=== PATIENT | female | born 1960 | race Caucasian/White ===

== ENCOUNTER → 2021-12-03 10:05 | Outpatient (CLI) | payer MEDICARE, SELFPAY ==
--- NOTE | ~2021-12-03 | XR_ITS ---
EXAMINATION: XR hip LT min 3V w AP pelvis DATE: 12/03/2021 10:24 INDICATION: Left hip pain TECHNIQUE: AP view the pelvis and two views of left hip were obtained. COMPARISON: 07/09/2018 FINDINGS: Bone alignment is normal. There is no fracture. There is mild osteoarthritis of the hips. M ild osteitis pubis is also noted. There are phleboliths of the pelvis. There is at least moderate low er lumbar spondylosis. IMPRESSION: 1. Mild osteoarthritis. Reviewed, dictated and finalized at location A. IMPRESSION: 1. Mild osteoarthritis.
== END ==
PROVIDERS: PCP Family Medicine; Visit Provider Family Medicine
DX: M25.552 Pain in left hip (principal); M16.12 Unilateral primary osteoarthritis, left hip; M86.8X8 Other osteomyelitis, other site
CPT/HCPCS: 73502

== ENCOUNTER 2022-09-11 15:25 | Emergency (ER) | payer MEDICARE, SELFPAY ==
--- NOTE | ~2022-09-11 | XR_ITS ---
EXAMINATION: XR chest 2V DATE: 09/11/2022 15:53 INDICATION: Fever, cough, and shortness of breath. TECHNIQUE: Frontal and lateral views of the chest were obtained. COMPARISON: CT abdomen and pelvis 09/15/2013 FINDINGS: There are mild airspace opacities in the midlung zones bilaterally. No pleural effusion or pneumothorax. The heart size is normal. There is an electronic implant in left anterior chest wall. IMPRESSION: 1. Mild airspace opacities in the midlung zones bilaterally suspicious for pneumonia. Reviewed, dictated and finalized at location A. CAL CLAIMS EXAMINER IMPRESSION: 1. Mild airspace opacities in the midlung zones bilaterally suspicious for pneu monia.
--- NOTE | 2022-09-11 15:31 | ED.URI ---
HPI - URI/Sore Throat General Chief Complaint: Upper Respiratory Infection Stated Complaint: SOB,RT Chest Pain,Cough,Congestion Time Seen by Provider: 09/11/22 15:59 Source: patient and RN notes reviewed Mode of arrival: ambulatory Limitations: no limitations History of Present Illness HPI Narrative: 62-year-old female presents with concern for ongoing cough, fever after COVID diagnosis. She reports she was diagnosed with COVID 1 week ago, she continue have cough and fever, her primary care provider sent her an order in for a Z-Kumar yesterday. She started a Z-Kumar yesterday. She reports her pulse ox was reading 88 at home. She reports nausea without vomiting MD elicited complaint: fever and cough Related Data Home Medications Medication Instructions Recorded Confirmed apixaban 5 mg tablet (Eliquis) 5 mg PO BID 06/16/22 09/11/22 Allergies Allergy/AdvReac Type Severity Reaction Status Date / Time levofloxacin Allergy Unknown Unknown Verified 09/11/22 15:49 naproxen Allergy Unknown Unknown Verified 09/11/22 15:49 povidone-iodine AdvReac Severe HIVES/THROAT Verified 09/11/22 15:49 SWELLING Sulfa (Sulfonamide AdvReac Severe Anaphylaxis Verified 09/11/22 15:49 Antibiotics) chlorhexidine AdvReac Mild HIVES Verified 09/11/22 15:49 iodine AdvReac Mild Hives Verified 09/11/22 15:49 latex AdvReac Mild Hives Verified 09/11/22 15:49 soap AdvReac Mild Hives Verified 09/11/22 15:49 Review of Systems Review of Systems: CONSTITUTIONAL: Reports malaise, chills, fever. EYES: Denies visual changes, redness, or discharge. ENT: Reports rhinorrhea, congestion. Denies sinus pain, otalgia and sore throat. CARDIOVASCULAR: Denies chest pain, palpitations, or edema. RESPIRATORY: Reports cough, dyspnea. GASTROINTESTINAL: Denies abdominal pain, nausea, vomiting, diarrhea SKIN: Denies rash or itching. MUSCULOSKELETAL: Denies myalgia. NEUROLOGIC: Denies headache. All systems reviewed & are unremarkable except as noted in HPI and below PMFSH Past Medical History Medical History (Updated 09/11/22 @ 16:05 by Aicha Arroyo NP) Acute bronchitis Adult BMI 35.0-35.9 kg/sq m Arthritis At moderate risk for fall the patient fell down the stairs when she lost her balance April,. BMI 36.0-36.9,adult Breast cancer screening by mammogram mammogram normal On 08/20/2022. Cardiac arrhythmia Cervical spinal stenosis Chronic left hip pain X-ray 12/03/2021 with mild osteoarthritis both hips Chronic low back pain with bilateral sciatica Closed head injury Colon cancer screening patient is due for repeat screening on 11/16/[address] Marin. Family history of multiple colon polyps. 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 Paxlovid Degenerative lumbar disc Essential (primary) hypertension Headache Insomnia Intraductal papilloma (~1987) Lumbar radiculopathy Lupus (systemic lupus erythematosus) Mixed hyperlipidemia Overall profile is excellent. No treatment needed. Neuroma of foot (~2012) Obesity (BMI 30-39.9) Osteoarthritis of right thumb Perianal fistula Pharyngitis Plantar fibromatosis Poor short term memory Rosacea Screening cholesterol level Seasonal allergic rhinitis Urticaria UTI (urinary tract infection) Surgical History Surgical History (Updated 05/22/20 @ 14:06 by Eunice Rousseau MA) H/O inguinal hernia repair (~1986) H/O microdiscectomy (~2007) History of carpal tunnel release (~2015) History of hysterectomy (~2014) S/P trigger finger release (~2015) Family History Family History (Updated 05/22/20 @ 14:11 by Eunice Rousseau MA) Mother Family history of thyroid disease Father Hypertension, Onset Age: 75 Family history of coronary artery disease, Onset Age: 75 Grandparent Dementia Grandparent , suicide Depression Grandparent Heart disease Rheumatoi
[2022-09-11 15:36] VITALS: BP 138/110; PULSE 123; RESP 20; TEMP 38.8; O2SAT 94
== END 2022-09-11 16:16 | disposition home or self-care (01) ==
PROVIDERS: Emergency Provider Nurse Practitioner; PCP Family Medicine
DX: J18.9 Pneumonia, unspecified organism (principal); I10 Essential (primary) hypertension; E78.5 Hyperlipidemia, unspecified
CPT/HCPCS: 71046; 99213; G0463

== ENCOUNTER 2023-08-16 00:33 | Day surgery (SDC) | payer MEDICARE, SELFPAY ==
[2023-07-29 13:18] VITALS: BMI 33.7
--- NOTE | 2023-08-13 10:18 | SUR.PREOP ---
Patient called regarding upcoming procedure. Pt updated on arrival date and time. All questions answered
--- NOTE | 2023-08-14 15:27 | PM.HPGS ---
History of Present Illness History of Present Illness Consent: Risks, benefits, and alternatives have been discussed and questions answered. Patient agrees to proceed with procedure. Chief complaint: fam hx colon polyps Narrative: Rachell Palmer is a 63 year old female Referred for colon cancer screening. She has a family history of colon cancer. Review of Systems Review of Systems: All systems reviewed & are unremarkable except as noted in HPI and below PMFSH Past Medical History Medical History Abscess and cellulitis of gluteal region (12/29/22) left lower buttocks Acute bronchitis Acute non-recurrent maxillary sinusitis Adult BMI 35.0-35.9 kg/sq m Arthritis At moderate risk for fall the patient fell down the stairs when she lost her balance April,. BMI 36.0-36.9,adult Breast cancer screening by mammogram mammogram normal On 08/20/2022. Candidiasis of female genitalia Cardiac arrhythmia Cervical spinal stenosis Chronic left hip pain X-ray 12/03/2021 with mild osteoarthritis both hips Chronic low back pain with bilateral sciatica Closed head injury Colon cancer screening colonoscopy 11/25/[address] Marin normal with diverticulosis and hemorrhoids. Normal colonoscopy 04/18/2018 with recheck in 5 years With Family history of multiple colon polyps. 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 Paxlovid Degenerative lumbar disc Essential (primary) hypertension Headache Insomnia Intraductal papilloma (~1987) Lumbar radiculopathy Lupus (systemic lupus erythematosus) Mixed hyperlipidemia Overall profile is excellent. No treatment needed. Neuroma of foot (~2012) Obesity (BMI 30-39.9) On prednisone therapy Osteoarthritis of right thumb Perianal fistula Pharyngitis Plantar fibromatosis Pneumonia Poor short term memory Rosacea Screening cholesterol level Screening for osteoporosis (~02/23/17) normal DEXA scan with T-score 0.7 at the spine and 0.6 at combined hips. Seasonal allergic rhinitis Urticaria UTI (urinary tract infection) Surgical History Surgical History H/O inguinal hernia repair (~1986) H/O microdiscectomy (~2007) History of carpal tunnel release (~2015) History of hysterectomy (~2014) S/P trigger finger release (~2015) Family History Family History Mother Family history of thyroid disease Father Hypertension, Onset Age: 75 Family history of coronary artery disease, Onset Age: 75 Grandparent Dementia Grandparent , suicide Depression Grandparent Heart disease Rheumatoid arteritis Grandparent Diabetes mellitus Heart disease Gangrene Sibling Arthritis Sibling Degenerative disc disease Sibling Thyroid disease Osteoarthritis Sibling Crohn's disease Social History Social History Smoking status: Never smoker Alcohol intake: current Substance use: never Substance use type: does not use Current Housing: Decline to Answer Concerned About Future Housing: Decline to Answer Difficulty Paying Gas/Electric Bills: Decline to Answer Difficulty Paying for Meds: Decline to Answer Currently Unemployed: Decline to Answer Education: Decline to Answer Difficulty w/ Childcare or Family Care: Decline to Answer Living arrangements: with family Spiritual care concerns: No Meds Home Medications and Allergies Home Medications Medication Instructions Recorded Confirmed Type belimumab 400 mg intravenous 400 mg IV . Monthly #1 ea 01/28/21 07/29/23 Rx solution (Benlysta) apixaban 5 mg tablet (Eliquis) 5 mg PO BID 06/16/22 08/16/23 History promethazine 12.5 mg tablet 12.5 mg P
[2023-08-16 12:00] VITALS: BP 149/89; PULSE 84; RESP 18; TEMP 36.3; O2SAT 99
[2023-08-16] MEDS: LACTATED RINGERS 1,000 ML 150 ML IV CONT (12:23)
--- NOTE | 2023-08-16 12:24 | WPDANESEPPF ---
Anes - Initial Pre Proc Eval Procedure: Operation Date: 08/16/23 13:00 Proposed Procedures p Colonoscopy - Brian Marin MD Date/Time: 08/16/23 12:24 Surgeon: Brian Marin MD Pre Op Diagnosis: fam hx colon polyps Patient Data Age: 63 Gender: F Height: 1.63 m Weight: 90.9 kg Last Vital Signs Temp 97.4 F L 08/16/23 12:00 Pulse 84 08/16/23 12:00 Resp 18 08/16/23 12:00 BP 149/89 H 08/16/23 12:00 Pulse Ox 99 08/16/23 12:00 O2 Del Method Room Air 08/16/23 12:00 Allergies Allergy/AdvReac Type Severity Reaction Status Date / Time chlorhexidine Allergy Severe Swelling Verified 08/16/23 11:58 iodine Allergy Severe Swelling Verified 08/16/23 11:58 povidone-iodine Allergy Severe HIVES/THROAT Verified 08/16/23 11:58 SWELLING Sulfa (Sulfonamide Allergy Severe Anaphylaxis Verified 08/16/23 11:58 Antibiotics) latex Allergy Intermediate Hives Verified 08/16/23 11:58 Home Medications Medication Instructions Recorded Confirmed Type belimumab 400 mg intravenous 400 mg IV . Monthly #1 ea 01/28/21 07/29/23 Rx solution (Benlysta) apixaban 5 mg tablet (Eliquis) 5 mg PO BID 06/16/22 08/16/23 History promethazine 12.5 mg tablet 12.5 mg PO TID PRN nausea and 09/11/22 07/29/23 Rx vomiting #10 tabs tramadol 50 mg tablet 50 mg PO Q6H PRN pain #120 tabs 01/27/23 07/29/23 Rx biotin [Hair, Skin and Nails 1 tab-cap PO DAILY 07/01/23 07/29/23 History (biotin)] cholecalciferol (vitamin D3) 2 gummy PO DAILY 07/01/23 07/29/23 History mecobalamin (vitamin B12) 1 gummy PO DAILY 07/01/23 07/29/23 History benzonatate 200 mg capsule 200 mg PO TID PRN cough #30 caps 07/14/23 07/29/23 Rx hydroxychloroquine 200 mg tablet 200 mg PO BID #180 tabs 07/20/23 07/29/23 Rx rabeprazole 20 mg tablet,delayed 20 mg PO DAILY #90 tabs 07/20/23 07/29/23 Rx release zaleplon 10 mg capsule 20 mg PO . q.h.s. PRN insomnia 07/20/23 07/29/23 Rx #60 caps One Daily Women's 1 gummy PO DAILY 07/29/23 07/29/23 History Radiant Collagen 2 gummy PO DAILY 07/29/23 07/29/23 History amlodipine 5 mg tablet 10 mg PO HS 07/29/23 07/29/23 History prednisone 5 mg tablet 5 mg PO DAILY 07/29/23 07/29/23 History Patient hx anesthesia problems: none Family hx anesthesia problems: none Results Review: All pre-operative results and documents have been reviewed as part of the pre-operative evaluation. [facility] Past Medical History Medical History Abscess and cellulitis of gluteal region (12/29/22) left lower buttocks Acute bronchitis Acute non-recurrent maxillary sinusitis Adult BMI 35.0-35.9 kg/sq m Arthritis At moderate risk for fall the patient fell down the stairs when she lost her balance April,. BMI 36.0-36.9,adult Breast cancer screening by mammogram mammogram normal On 08/20/2022. Candidiasis of female genitalia Cardiac arrhythmia Cervical spinal stenosis Chronic left hip pain X-ray 12/03/2021 with mild osteoarthritis both hips Chronic low back pain with bilateral sciatica Closed head injury Colon cancer screening colonoscopy 11/25/[address] Marin normal with diverticulosis and hemorrhoids. Normal colonoscopy 04/18/2018 with recheck in 5 years With Family history of multiple colon polyps. 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 Paxlovid Degenerative lumbar disc Essential (primary) hypertension Headache Insomnia Intraductal papilloma (~1987) Lumbar radiculopathy Lupus (systemic lupus erythematosus) Mixed hyperlipidemia Overall profile is excellent. No treatment needed. Neuroma of foot (~2012) Obesity (BMI 30-39.9) On prednisone therapy Osteoarthritis of right thumb Perianal fistula Pharyngitis Plantar fibromatosis Pneumonia Poor short term memory Rosacea Screening cholesterol level Screening for osteoporosis (~02/23/17) normal DEXA s
[2023-08-16 13:11] VITALS: BP 118/64; PULSE 67; RESP 24; O2SAT 99
[2023-08-16 13:21] VITALS: BP 122/68; PULSE 64; RESP 20; O2SAT 99
[2023-08-16 13:30] VITALS: BP 136/76; PULSE 60; RESP 20; O2SAT 100
== END 2023-08-16 13:40 | disposition home or self-care (01) ==
PROVIDERS: PCP Family Medicine; Visit Provider Internal Medicine Gastroenterology
PROC: 0DJD8ZZ Inspection of Lower Intestinal Tract, Via Natural or Artificial Opening Endoscopic (ICD-10-PCS; CPT 45378; principal; 2023-08-16 13:00)
DX: Z12.11 Encounter for screening for malignant neoplasm of colon (principal); K64.8 Other hemorrhoids; K57.30 Diverticulosis of large intestine without perforation or abscess without bleeding; I10 Essential (primary) hypertension; E78.2 Mixed hyperlipidemia; G47.00 Insomnia, unspecified; M32.9 Systemic lupus erythematosus, unspecified; J30.2 Other seasonal allergic rhinitis; M25.552 Pain in left hip; M54.42 Lumbago with sciatica, left side; M54.41 Lumbago with sciatica, right side; G89.29 Other chronic pain; E66.9 Obesity, unspecified; Z68.34 Body mass index [BMI] 34.0-34.9, adult; Z79.01 Long term (current) use of anticoagulants; Z79.891 Long term (current) use of opiate analgesic; Z98.890 Other specified postprocedural states; Z86.018 Personal history of other benign neoplasm; Z80.0 Family history of malignant neoplasm of digestive organs; Z82.49 Family history of ischemic heart disease and other diseases of the circulatory system
CPT/HCPCS: G0105; J2704; J7120

== ENCOUNTER 2024-08-09 00:40 | Day surgery (SDC) | payer MEDICARE, SELFPAY ==
--- NOTE | 2024-08-08 09:29 | PM.IMHP ---
H&P: HPI History of Present Illness Date/Time: 08/08/24 09:29 Chief Complaint: Patient has a bimalleolar ankle fracture left. She slipped and fell on the ice and twisted her ankle. She has a fracture of the lateral malleolus with displacement and widening of the medial clear space. Review of Systems Musculoskeletal: Musculoskeletal: Reports arthralgias, Reports joint swelling and Reports stiffness Neurologic: Reports abnormal gait [facility] Past Medical History Medical History Lateral epicondylitis of right elbow (~05/2024) Strain of right inguinal region (~05/2024) At low risk for fall BMI 33.0-33.9,adult Contact dermatitis (~02/2024) Diastolic dysfunction without heart failure echo 01/13/2024 with ejection fraction 56% with grade 2 diastolic dysfunction and no significant valvular problems. Cardiac MRI normal on 03/07/2024. CT angiogram of the heart on 03/15/2024 with mild nonobstructive coronary artery disease with 10-30% lesions with small PFO with calcium score of 0. Motion sickness BMI 34.0-34.9,adult (09/27/23) Candidiasis of female genitalia On prednisone therapy Abscess and cellulitis of gluteal region (12/29/22) left lower buttocks Screening for osteoporosis (~02/23/17) normal DEXA scan with T-score 0.7 at the spine and 0.6 at combined hips. DEXA 09/08/2023 with T-score 0.3 at the spine, -0.8 left hip and -0.9 right hip. Acute non-recurrent maxillary sinusitis Pneumonia COVID-19 (~09/04/22) 2nd episode 09/04/2022. Paxlovid. tested positive 12/18/2023. Acute bronchitis Pharyngitis UTI (urinary tract infection) Colon cancer screening colonoscopy 11/25/[address] Marin normal with diverticulosis and hemorrhoids. Normal colonoscopy 04/18/2018 with recheck in 5 years With Family history of multiple colon polyps. normal colonoscopy 08/16/2023 with recheck in 5 years. At moderate risk for fall the patient fell down the stairs when she lost her balance April,. Obesity (BMI 30-39.9) Poor short term memory Normal MRI of the brain on 02/22/2024. 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 Tested positive 12/18/2023. Osteoarthritis of right thumb BMI 36.0-36.9,adult Rosacea Headache Closed head injury Mixed hyperlipidemia Overall profile is excellent. No treatment needed. Seasonal allergic rhinitis Adult BMI 35.0-35.9 kg/sq m Insomnia Essential (primary) hypertension Chronic low back pain with bilateral sciatica Breast cancer screening by mammogram mammogram normal On 08/20/2022. Normal mammogram 09/08/2023. Neuroma of foot (~2012) Intraductal papilloma (~1987) Perianal fistula Lumbar radiculopathy Degenerative lumbar disc Plantar fibromatosis Cardiac arrhythmia Arthritis Screening cholesterol level Cervical spinal stenosis Lupus (systemic lupus erythematosus) Surgical History Surgical History S/P trigger finger release (~2015) History of carpal tunnel release (~2015) History of hysterectomy (~2014) H/O microdiscectomy (~2007) H/O inguinal hernia repair (~1986) Family History Family History Mother Family history of thyroid disease Father Hypertension, Onset Age: 75 Family history of coronary artery disease, Onset Age: 75 Grandparent Dementia Grandparent , suicide Depression Grandparent Heart disease Rheumatoid arteritis Grandparent Diabetes mellitus Heart disease Gangrene Sibling Arthritis Sibling Degenerative disc disease Sibling Thyroid disease Osteoarthritis Sibling Crohn's disease Social History Social History (Updated 08/08/24 @ 08:13 by Missy Prince [facility]) Smoking status: Never smoker Alcohol intake: current Substance use: never Substance use type: does not use Do You Feel Safe in your Home?: Yes Lack of Transportation: No Lack of Food: Never True Current Housing: I Have Housing Concerned About Future Housing: No Difficulty Paying Gas/Electric Bills: No Difficulty Paying for Meds: No Currently Unemployed: No Education: Master's Degree or Higher Difficulty w/ Childcare or Family Care: No Living arrangements: with family Spiritual care concerns: No Meds Home Medications and Allergies Home Medications ?Medication ?Instructions ?Recorded ?Confirmed ?Type belimumab 400 mg intravenous 400 mg IV . Monthly #1 ea 01/28/21 08/08/24 Rx solution (Benlysta) apixaban 5 mg tablet (Eliquis) 5 mg PO BID 06/16/22 08/08/24 History biotin [Hair, Skin and Nails 1 tab-cap PO DAILY 07/01/23 08/08/24 History (biotin)] cholecalciferol (vitamin D3) 2 gummy PO DAILY 07/01/23 08/08/24 History mecobalamin (vitamin B12) 1 gummy PO DAILY 07/01/23 08/08/24 History One Daily Women's 1 gummy PO DAILY 07/29/23 08/08/24 History Radiant Collagen 2 gummy PO DAILY 07/29/23 08/08/24 History prednisone 5 mg tablet 5 mg PO DAILY 07/29/23 08/08/24 History amlodipine 5 mg tablet 5 mg PO BID #180 tabs 10/19/23 08/08/24 Rx promethazine 25 mg tablet 25 mg PO TID PRN nausea and 03/09/24 07/05/24 Rx vomiting #30 tabs zaleplon 10 mg capsule 20 mg (2 x 10 mg) PO . q.h.s. PRN 03/22/24 08/08/24 Rx insomnia #60 caps triamcinolone acetonide 0.5 % 1 applic topical BID #15 grams 05/25/24 07/05/24 Rx topical cream hydroxychloroquine 200 mg tablet 200 mg PO BID #180 tabs 06/20/24 08/08/24 Rx rabeprazole 20 mg tablet,delayed 20 mg PO DAILY #90 tabs 06/20/24 07/05/24 Rx release tramadol 50 mg tablet 50 mg PO Q6H PRN pain #120 tabs 06/20/24 08/08/24 Rx hydrocodone 5 mg-acetaminophen 325 1 tablet PO Q6H PRN pain #12 tabs 08/05/24 Rx mg tablet Allergies Allergy/AdvReac Type Severity Reaction Status Date / Time chlorhexidine Allergy Severe Swelling Verified 08/08/24 08:09 iodine Allergy Severe Swelling Verified 08/08/24 08:09 povidone-iodine Allergy Severe HIVES/THROAT Verified 08/08/24 08:09 SWELLING Sulfa (Sulfonamide Allergy Severe Anaphylaxis Verified 08/08/24 08:09 Antibiotics) latex Allergy Intermediate Hives Verified 08/08/24 08:09 Exam Narrative: On exam she has pain over the ankle with swelling. Neuro she can wiggle her toes. She romo minimal deformity. Neurologically she appears to be grossly intact. She has pain with any manipulation. Eyes: General: appearance normal, both eyes and all related structures Neck: Neck: supple Resp: Effort & Inspection: normal respiratory effort Cardio: Rate: regular rate Rhythm: regular rhythm Radiology Reports: Comments: Patient: Rachell Palmer EXAM: XR ankle LT min 3V DATE: 08/05/2024 17:00 HISTORY: fall, injury . COMPARISON: None available. FINDINGS: Decreased mineralization. Oblique distal fibular fracture at the level of the joint line, with 3 mm lateral displacement. Medial ankle joint space widening with mild lateral subluxation of the talus. No lytic or blastic lesion. Mild scattered degenerative change. Mild Achilles and plantar enthesopathy. No erosion or periosteal change. Mild lateral soft tissue swelling. IMPRESSION: Medial joint space widening and mild lateral talar subluxation. Oblique distal left fibular fracture (Sung B). Reviewed, dictated and finalized at location K. RTISING COORDINATOR Please be advised this is a medical document. It is intended for [id number] communication. It is written in medical language and may contain unfamiliar abbreviations or verbiage. Medical documents are intended to carry relevant information, facts as evident, and the clinical opinion of the practitioner at the time of the encounter. This report may have been done utilizing a voice recognition system. Attempts have been made to correct errors. However, there may be uncorrected grammatical, spelling, and recognition errors present. The file time of this note does not necessarily represent the time the patient was seen. Dictated By: Rodolfo Lofton MD 08/05/24 1701 Ankle X-Ray 08/05/24 Hip/Pelvis X-Ray 12/03/21 Assessment and Plan Assessment and plan (1) Bimalleolar fracture of left ankle: Code(s): S82.842A - Displaced bimalleolar fracture of left lower leg, initial encounter for closed fracture Status: Acute Assessment and Plan: Patient has bimalleolar ankle fracture left. She has a displaced lateral malleolar fracture with widening of the clear space. Clearly she would benefit from operative intervention. I discussed this with her risks, benefits, limitations, and alternatives in detail. Will proceed with open reduction internal fixation assess syndesmosis at that time. I discussed this with her in detail. Will proceed per her request.
[2024-08-08 11:37] VITALS: BMI 32.5
--- NOTE | 2024-08-08 13:30 | PC.NURSE ---
Report to the Outpatient Waiting Room, entrance under the green pavilion located off [facility], at time ___8:30AM____ on date ___08/09/24____. Planned Procedure Time: ___10:30AM .? Time changes happen often and if your time is changed the preop area will call you the afternoon before. - You and your visitor will be asked to self-screen and do not enter if you have any COVID symptoms. Please call surgeon if you need to reschedule. - A mask is optional within the hospital at this time. Patients may have clear liquids (water, carbonated beverages, clear teas, apple juice) until 3 hours prior to surgery with a maximum of 20 ounces. - No food from midnight until time of surgery and no smoking. This includes no chewing gum, candy or mints. - Infants may have breast milk until 4 hours before surgery, formula 6 hours prior to surgery. - Children will be allowed to drink immediately following surgery.? If applicable, please bring a bottle or sippy cup to assist with drinking. Juice, water, soda, and popsicles are readily available.? For infants on formula, please bring formula the day of surgery.? Pacifiers are allowed. Take only the following medications with a SIP of water on the morning of surgery: ____TRAMADOL OR HYDROCODONE NEEDED FOR PAIN. DO NOT STOP ANY OF YOUR OTHER PRESCRIPTION MEDICATIONS PRIOR TO SURGERY EXCEPT THE FOLLOWING Medications to discontinue per physician CONTINUE HOLDING ELIQUIS (PT HAS BEEN HOLDING SINCE 08/03/24 IN PREPARATION FOR A BACK INJECTION, WHICH WAS POSTPONED AFTER FALL). HOLD ALL VITAMINS/SUPPLEMENTS STARTING NOW-08/08/24 Please no make-up, nail cymraes, hairspray, perfume, deodorant, or body powder the day of surgery.? No jewelry (including any body piercings) or valuables the day of surgery, leave them at home.? Please take a shower or bath the night before, or the morning of, surgery with an antibacterial soap.? Wear comfortable, loose fitting clothing.? Children are encouraged to wear pajamas. - Jewelry must be removed prior to entering the operating room.? Rings and piercings that are not removed may be cut off. - The hospital will not accept responsibility for valuables.? - Please leave all valuables, including medications, at home the day of surgery. If you are going home after surgery, a licensed star route mail driver must drive you home.? - NO public transportation without another adult if you receive anesthesia. - We recommend that an adult stay with you for 24 hours following discharge. - We also recommend that you do not drive, make important decision, drink alcoholic beverages, or take any drugs that were not prescribed by your health care provider for at least 24 hours after your discharge time. For Pediatric surgeries, we recommend two adults accompany the child home. Follow any additional instructions given to you from your surgeon. Telephone instructions given to PATIENT and asked if any additional questions and then verbalized understanding. Patient advised to call surgeon office or pre surgery nurse liaison [phone] if any additional questions.
[2024-08-09] VITALS (13 sets, daily range): BP systolic 123–161; BP diastolic 59–86; PULSE 62–80; RESP 10–17; TEMP 36.3–36.6; O2SAT 93–100
[2024-08-09] MEDS: ACETAMINOPHEN 500 MG TABLET 1000 MG PO (09:25)
[2024-08-09] MEDS: LACTATED RINGERS 1,000 ML 30 ML IV CONT ×2 (09:30→13:51)
[2024-08-09] MEDS: KETOROLAC 15 MG/ML VIAL (*BKC) IV PUSH (09:30)
--- NOTE | 2024-08-09 09:54 | WPDHPUPDATE1 ---
History and Physical Update Update Date/Time: 08/09/24 09:54 History and Physical has been reviewed, including an updated exam of the patient. There are NO changes in the patient's condition. Risks, benefits, and alternatives have been discussed and questions answered. Patient agrees to proceed with procedure.
--- NOTE | 2024-08-09 10:57 | P.PNAN_ITS ---
Anes - Initial Pre Proc Eval Procedure: Operation Date: 08/09/24 10:30 Proposed Procedures p Open Reduction Internal Fixation of Left Ankle Fracture, Possible Syndesmosis Fixation - Chapito Harris MD Date/Time: 08/09/24 10:57 Surgeon: Chapito Harris MD Pre Op Diagnosis: left ankle fracture Patient Data Age: 64 Gender: F Height: 1.63 m Weight: 89.7 kg Last Vital Signs Temp 36.3 C L 08/09/24 09:25 Pulse 66 08/09/24 09:25 Resp 14 08/09/24 09:25 BP 127/66 08/09/24 09:25 Pulse Ox 100 08/09/24 09:25 O2 Del Method Room Air 08/09/24 09:25 Allergies Allergy/AdvReac Type Severity Reaction Status Date / Time chlorhexidine Allergy Severe Swelling Verified 08/09/24 09:43 iodine Allergy Severe Swelling Verified 08/09/24 09:43 povidone-iodine Allergy Severe HIVES/THROAT Verified 08/09/24 09:43 SWELLING Sulfa (Sulfonamide Allergy Severe Anaphylaxis Verified 08/09/24 09:43 Antibiotics) latex Allergy Intermediate Rash Verified 08/09/24 09:43 Home Medications ?Medication ?Instructions ?Recorded ?Confirmed ?Type belimumab 400 mg intravenous 400 mg IV . Monthly #1 ea 01/28/21 08/08/24 Rx solution (Benlysta) apixaban 5 mg tablet (Eliquis) 5 mg PO BID 06/16/22 08/09/24 History biotin 2 tab-cap PO DAILY 07/01/23 08/08/24 History cholecalciferol (vitamin D3) 2 gummy PO DAILY 07/01/23 08/08/24 History mecobalamin (vitamin B12) 2 gummy PO DAILY 07/01/23 08/08/24 History One Daily Women's 2 gummy PO DAILY 07/29/23 08/08/24 History prednisone 5 mg tablet 5 mg PO HS 07/29/23 08/08/24 History promethazine 25 mg tablet 25 mg PO TID PRN nausea and 03/09/24 08/08/24 Rx vomiting #30 tabs zaleplon 10 mg capsule 20 mg (2 x 10 mg) PO . q.h.s. PRN 03/22/24 08/08/24 Rx insomnia #60 caps hydroxychloroquine 200 mg tablet 200 mg PO BID #180 tabs 06/20/24 08/08/24 Rx rabeprazole 20 mg tablet,delayed 20 mg PO DAILY #90 tabs 06/20/24 08/08/24 Rx release tramadol 50 mg tablet 50 mg PO Q6H PRN pain #120 tabs 06/20/24 08/08/24 Rx hydrocodone 5 mg-acetaminophen 325 1 tablet PO Q6H PRN pain #12 tabs 08/05/24 08/08/24 Rx mg tablet amlodipine 5 mg tablet 10 mg PO HS 08/08/24 08/08/24 History triamcinolone acetonide 0.5 % 1 applic topical BID PRN skin 08/08/24 08/08/24 History topical cream irritation hydrocodone 7.5 mg-acetaminophen 1 tablet PO Q4H PRN pain #40 tabs 08/09/24 Rx 325 mg tablet Patient hx anesthesia problems: none Family hx anesthesia problems: none Results Review: All pre-operative results and documents have been reviewed as part of the pre- operative evaluation. [facility] Past Medical History Medical History Lateral epicondylitis of right elbow (~05/2024) Strain of right inguinal region (~05/2024) At low risk for fall BMI 33.0-33.9,adult Contact dermatitis (~02/2024) Diastolic dysfunction without heart failure echo 01/13/2024 with ejection fraction 56% with grade 2 diastolic dysfunction and no significant valvular problems. Cardiac MRI normal on 03/07/2024. CT angiogram of the heart on 03/15/2024 with mild nonobstructive coronary artery disease with 10-30% lesions with small PFO with calcium score of 0. Motion sickness BMI 34.0-34.9,adult (09/27/23) Candidiasis of female genitalia On prednisone therapy Abscess and cellulitis of gluteal region (12/29/22) left lower buttocks Screening for osteoporosis (~02/23/17) normal DEXA scan with T-score 0.7 at the spine and 0.6 at combined hips. DEXA 09/08/2023 with T-score 0.3 at the spine, -0.8 left hip and -0.9 right hip. Acute non-recurrent maxillary sinusitis Pneumonia COVID-19 (~09/04/22) 2nd episode 09/04/2022. Paxlovid. tested positive 12/18/2023. Acute bronchitis Pharyngitis UTI (urinary tract infection) Colon cancer screening colonoscopy 11/25/[address] Marin normal with diverticulosis and hemorrhoids. Normal colonoscopy 04/18/2018 with recheck in 5 years With Family history of multiple colon polyps. normal colonoscopy 08/16/2023 with recheck in 5 years. At moderate risk for fall the patient fell down the stairs when she lost her balance April,. Obesity (BMI 30-39.9) Poor short term memory Normal MRI of the brain on 02/22/2024. Chronic left hip pain X-ray 12/03/2021 with mild osteoarthritis both hips Urticaria COVID-19 (07/27/21) tested positive 07/28/2021, monoclonal antibodies through personal assistant. Tested positive 12/18/2023. Osteoarthritis of right thumb BMI 36.0-36.9,adult Rosacea Headache Closed head injury Mixed hyperlipidemia Overall profile is excellent. No treatment needed. Seasonal allergic rhinitis Adult BMI 35.0-35.9 kg/sq m Insomnia Essential (primary) hypertension Chronic low back pain with bilateral sciatica Breast cancer screening by mammogram mammogram normal On 08/20/2022. Normal mammogram 09/08/2023. Neuroma of foot (~2012) Intraductal papilloma (~1987) Perianal fistula Lumbar radiculopathy Degenerative lumbar disc Plantar fibromatosis Cardiac arrhythmia Arthritis Screening cholesterol level Cervical spinal stenosis Lupus (systemic lupus erythematosus) Surgical History Surgical History S/P trigger finger release (~2015) History of carpal tunnel release (~2015) History of hysterectomy (~2014) H/O microdiscectomy (~2007) H/O inguinal hernia repair (~1986) Family History Family History Mother Family history of thyroid disease Father Hypertension, Onset Age: 75 Family history of coronary artery disease, Onset Age: 75 Grandparent Dementia Grandparent , suicide Depression Grandparent Heart disease Rheumatoid arteritis Grandparent Diabetes mellitus Heart disease Gangrene Sibling Arthritis Sibling Degenerative disc disease Sibling Thyroid disease Osteoarthritis Sibling Crohn's disease Social History Social History (Updated 08/08/24 @ 08:13 by Missy Prince CMA) Smoking status: Never smoker Alcohol intake: current Substance use: never Substance use type: does not use Do You Feel Safe in your Home?: Yes Lack of Transportation: No Lack of Food: Never True Current Housing: I Have Housing Concerned About Future Housing: No Difficulty Paying Gas/Electric Bills: No Difficulty Paying for Meds: No Currently Unemployed: No Education: Master's Degree or Higher Difficulty w/ Childcare or Family Care: No Living arrangements: with family Spiritual care concerns: No Anes - Eval Final PreProcedure Day of Procedure 08/09/24 10:57 Patient weight: obese Heart: regular rate and rhythm Lungs: clear to auscultation and normal air movement Airway: Mallampati scale class II Neurological: alert and oriented Last oral intake: >/= 8 hours ASA classification: III Emergent: no Anesthetic plan: proceed Anesthesia type and monitoring: general LMA and standard monitoring Results Review: All pre-operative results and documents have been reviewed as part of the pre- operative evaluation. Informed Consent: The patient's anesthetic plan and its attendant risks and benefits were discussed with the patient/family/POA. Questions were solicited and answers provided to the satisfaction of the patient/family/POA.
--- NOTE | 2024-08-09 12:01 | P.OP_ITS ---
Procedure Note - Detailed Date of Procedure 08/09/24 Pre-op Diagnosis Bimalleolar ankle fracture left Post-op Diagnosis Same Procedure Performed Open reduction internal fixation left ankle with syndesmosis fixation Surgeon Chapito Harris MD Set Up Mold Technician Cabrera Anesthesia General Findings Fracture with displacement Description of Procedure Patient brought to operating room #7. A general anesthetic was was administered. She was sterilely prepped and draped in usual manner. Longitudinal incision made laterally. Dissection carried down to the fibula. The fracture was found, reduced, and held with a lobster claw. am interfragmentary screw was placed and a 6 hole plate placed over it with 3 screws proximally, two distally. I then checked the stability of the syndesmosis and she open just a little bit. I elected to put a tight rope in. This stopped any opening of the syndesmosis. The wound irrigated, hemostasis obtained, and closed with 2-0 Vicryl and santi. A sterile dressing was applied patient tolerated procedure well. Estimated Blood Loss 50 Complications No immediate complications Condition Stable Disposition PACU [facility] Billing Surgery - Charge Forward: Surgery Billing (80431 Bimalleolar Fracture)
[2024-08-09] MEDS: fentaNYL CITRATE INJ (*CRX) 100 MCG/2 ML VIAL 25 MCG IV PUSH ×8 (12:50→13:50)
[2024-08-09] MEDS: HYDROmorphone HCL INJ (*CRX) 1 MG/ML SYR 0.5 MG IV PUSH ×2 (14:06→14:23)
[2024-08-09] MEDS: oxyCODONE HCL (*CRX) 5 MG TAB IR PO (15:04)
--- OUTSIDE RECORDS SUMMARY | 2024-08-10 20:54 | XMS_ITS | Continuity of Care Document ---
Author Organization [facility] Address [address] [place] [address] Phone Care Team Providers Care Transit Bus Operator Name Role Phone Angel Ng MD Unavailable Unavailable Allergies, Adverse Reactions, Alerts Substance Reaction Status Criticality soap Active No Information povidone-iodine Active No Informati on MEDICAL SUPPLY, MISCELLANEOUS Active No Information CHLORHEXIDINE GLUCONATE Active No I nformation Sulfa (Sulfonamide Antibiotics) Active No Information latex Active No Information iodine Active No Information Medications Medication Instructions Dosage Effective Dates (start - stop) Status Comments hydroxychloroquine 200 mg tablet - Active Norvasc 5 mg tablet - Active Eliquis 5 mg tablet - Active tramadol 50 mg tablet - Active AcipHex 20 mg tablet,delayed release - Active Benlysta 120 mg intravenous solution - Active Procedures Procedure Date RADEX FNGR MINIMUM 2 VIEWS OFFICE/OUTPATIENT VISIT NEW Advance Directives Directive Yes / No Effective Date File Name No Information Encounters Encounter Description Practice Location Reason(s) For Visit Diagnoses Date Provider Providers Copied on Encounter OFFICE/OUTPA TIENT VISIT NEW [facility], [address] [address], [place], [address], [place] tel:[phone] [facility] Pain in right finger(s)Body mass index [BMI] 33.0-33.9, adultOsteoarthrit is of right thumb [address] Be[address] Ortiz. [address] , [place], [place], [id number] . tel:[phone] Referring Provider: Casimiro Mina, [address], [place], [address]. tel:[phone] Family History Family Member Type Diagnosis Age At Onset Mother Problem Cardiovascular disease Father Problem (finding) Mother Problem hypertension Father Problem Cancer, unknown Payers Payer name Insurance type Covered green party ID Mei cooper(s) Medicare E2 OT [id number] AARP E2 OT [id number] Social History Type Description Quantity Date Captured Comments Alcohol Use Details Unknown Caffeine Use Details Unknown Tobacco Use Status Current non-smoker Smoking Status Never smoker Non-Smoking Tobacco Use Details : No Details Available : No Details Available Sex Female Vital Signs Date / Time: Height Weight BMI Pulse Rate Blood Pressure Temperature Respiratory Rate Body Surface Area Head Circumference Head Circ. Percentile Wt./Mike. Percentile BMI percentile Pulse Ox Inhaled Ox 10:22 AM 64.00 in 89.811 kg (198.00 lbs) 33.9 9 kg/m eter (2) Chief Complaint And Reason For Visit No Information Reason For Referral Reason For Referral No Information Plan Of Treatment Date Type Action Status Referral Ordered: RADEX FNGR MINIMUM 2 VIEWS RT thumb ordered History Of Present Illness Encounter Date Complaint History Of Prese nt Illness No Information Functional Status Date Functional Assessmen t No Information Instructions Date Instruction Additional Infor mation Giving encouragement to exercise Related to Body mass index [BMI] 33.0-33.9, adult Assessments Type Assessment Date assessment Pain in right finger(s) assessment Body mass index [BMI] 33.0-33.9, adult assessment Osteoarthritis of right thumb Ma Patient Care Teams Name Effective Dates (start - stop) Status Members No Information
--- OUTSIDE RECORDS SUMMARY | 2024-08-10 20:54 | XMS_ITS | Patient Health Summary ---
Author Organization [facility] Address [address] [place] [address] Care Team Providers Care [employer] Worker Name Role Phone Sole Carson MD Primary Care Provider [phone] Note from [facility],non-owned Affiliates and Associated Physician Practices is amultiple site organization consisting of ambulatory clinics and hospital sitesin [place], [place], [place] and [place]. This disclosure is being madepursuant to the Care Everywhere program and may not contain all information available regarding this patient. Last updated 18.[facility] Allergies * Povidone Iodine(Urticaria) * Chlorhexidine(Urticaria) * Iodine(Urticaria) * Latex * Sulfa Drugs(Anaphylaxis) Medications * Be aware that medications may not be up to date on this document. Alwaysverify current medications with the patient. * hydroxychloroquine (PLAQUENIL) 200 MG tablet Take 1 Tab by mouth 2 times daily. * rabeprazole EC (ACIPHEX) 20 MG tablet Take 20 mg by mouth daily. * tramadol (ULTRAM) 50 MG tablet Take 100 mg by mouth every 6 hours as needed for Pain * amLODIPine (NORVASC) 5 MG tablet Take 10 mg by mouth once daily * calcium carbonate (TUMS) 750 MG chew tablet Take 2 Tabs by mouth at bedtime * Multiple Vitamins-Minerals (MULTIVITAMIN GUMMIES ADULT) CHEW Take 1 Tab by mouth once daily * Vitamin D3 (CHOLECALCIFEROL) 2000 UNITS capsule Take 2,000 Units by mouth once daily * zaleplon (SONATA) 10 MG capsule Take 20 mg by mouth at bedtime * promethazine (PHENERGAN) 25 MG tablet(Started 02/25/2016) * diclofenac sodium (VOLTAREN) 1 % gel(Started 02/25/2016) * acetaminophen (TYLENOL) 500 MG tablet Take 1,000 mg by mouth 2 times daily as needed for Fever or Pain Maximum allowable Acetaminophen amount = 4 Grams (4000 mg) / 24 hours. * ondansetron (ZOFRAN) 4 MG tablet(Started 03/26/2016) Take 1 Tab by mouth every 6 hours as needed for Nausea/Vomiting * apixaban (ELIQUIS) 5 MG tablet Eliquis 5 mg tablet Take 1 tablet twice a day by oral route. * BENLYSTA 200 MG/ML SOAJ(Started 11/29/2019) Weekly injection Active Problems Problem Noted Date Diagnosed Date Left lumbar radiculopathy 01/08/2010 Social History Tobacco Use Types Packs/Day Years Used Date Smoking Tobacco: Never Smokeless Tobacco: Never Tobacco Cessation:Counseling Given: No Alcohol Use Standard Drinks/Week Comments Yes 0 (1 standard drink = 0.6 oz pur e alcohol) occassional Sex and Gender Information Value Date Recorded Sex Assigned at Not on file Gender Identity Not on file Sexual Orientation Not on file Last Filed Vital Signs Vital Sign Reading Time Taken Comments Blood Pressure 131/83 01/11/2020 12:57 PM CDT Pulse 74 01/11/2020 12:57 PM CDT Temperature 37.3 ??C (99.1 ??F) 03/26/2016 12:28 PM C DT Respiratory Rate 16 03/26/2016 12:28 PM CDT Oxygen Saturation 94% 03/26/2016 12:28 PM CDT Inhaled Oxygen Concentration - - Weight 103.4 kg (228 lb) 01/11/2020 12:57 PM CDT Height 162.6 cm (5' 4.02 ) 03/25/2016 7:30 PM CD T Body Mass Index 39.12 03/25/2016 7:30 PM CDT Procedures * DERMATOPATHOLOGY(Performed 12/30/2022) * VITAMIN D 25-HYDROXY(Performed 01/17/2020) Performed for Paresthesias * SS-A/SS-B (SJOGREN'S) ANTIBODY PANEL(Performed 01/17/2020) Performed for Paresthesias * METHYLMALONIC ACID BLOOD(Performed 01/17/2020) Performed for Paresthesias * VITAMIN B12(Performed 01/17/2020) Performed for Paresthesias * TSH(Performed 01/17/2020) Performed for Paresthesias * RAD OUTSIDE IMG IMPORT(Performed 11/14/2019) Performed for Pain * RAD OUTSIDE IMG IMPORT(Performed 11/14/2019) Performed for Pain * RAD OUTSIDE IMG IMPORT(Performed 11/14/2019) Performed for Pain * IMAGING/RADIOLOGY/XRAY RESULTS ORDER(Performed 09/26/2019) * XR LUMBAR SP FLEX EXT 2 OR 3VW(Performed 07/22/2017) Performed for Lumbar spondylosis * DERMATOPATHOLOGY(Performed 01/05/2017) * DERMATOPATHOLOGY(Performed 01/05/2017) * CARDIAC RHYTHM STRIP ORDER(Performed 04/03/2016) * FL JUNG SURGERY LESS 60 MIN(Performed 03/25/2016) Performed for Pain * OXYGEN(Performed 03/25/2016) * PATHOLOGY TISSUE EXAM (STL)(Performed 03/25/2016) Performed for Stenosis, spinal, lumbar * DISCECTOMY LUMBAR 1-2 LEVELS(Performed 03/25/2016) Performed for Stenosis, spinal, lumbar * CBC W AUTO DIFFERENTIAL(Performed 03/25/2016) Performed for Pre-op exam * EKG 12-LEAD(Performed 03/25/2016) Performed for Pre-op evaluation * PT PTT PANEL(Performed 03/25/2016) * RAD OUTSIDE IMG IMPORT(Performed 11/15/2015) Performed for Pain * IMAGING/RADIOLOGY/XRAY RESULTS ORDER(Performed 10/30/2015) * DERMATOPATHOLOGY(Performed 09/13/2014) * US ABDOMEN LIMITED(Performed 09/28/2013) * IMAGING/RADIOLOGY/XRAY RESULTS ORDER(Performed 01/26/2010) * FL JUNG SURGERY LESS 60 MIN(Performed 01/08/2010) Performed for Back Pain * MRI LUMBAR SPINE WWO CONTRAST(Performed 01/08/2010) * COMPREHENSIVE METABOLIC PANEL(Performed 01/08/2010) Performed for Lumbar Disc Herniation with Radiculopathy * CBC W AUTO DIFFERENTIAL(Performed 01/08/2010) Performed for Lumbar Disc Herniation with Radiculopathy * URINALYSIS REFLEX MICROSCOPIC REFLEX CULTURE(Performed 01/08/2010) Performed for Unspecified Backache Results * DERMATOPATHOLOGY (12/30/2022 12:00 AM CDT) Only the most recent of4 resultswithin the time period is included. Case Report Dermatopathology Report ? Case: [id number] ? Authorizing Provider: ??Filemon King MD ?Collected: ? 12/30/2022 12:00 AM ? [facility] ? Received: ?12/31/2022 12:43 PM ? Pathologist: ? Audie Castillo MD ? Specimen: ?Skin, right upper med breast ? 3 6:47 PM CDT DERMATOPATHOLOGY LABORATORY Final Diagnosis Specimen A. SKIN, right upper med breast: SUPERFICIAL AND DEEP PERIVASCULAR LYMPHOCYTIC INFILTRATE (R21) (see microscopic description and comment) 3 6:47 PM CDT DERMATOPATHOLOGY LABORATORY Clinical History R/O Cyst vs. Other 3 6:47 PM CDT DERMATOPATHOLOGY LABORATORY Gross Description Specimen A: Received is one formalin filled container labeled with the patient's name and designated right upper med breast. The specimen consists of a punch biopsy measuring 6x5x6 mm. Jar 0. 3 6:47 PM CDT DERMATOPATHOLOGY LABORATORY Microscopic Description Specimen A. SKIN, right upper med breast: The epidermis is unremarkable. In the dermis there is a superficial and deep perivascular lymphocytic infiltrate without eosinophils. The adnexal structures are spared. The infiltrate is composed mostly of CD3+ T-cells with small admixed aggregates of CD20+ B-cells. COMMENT: The histological differential diagnosis is extensive and includes an infectious related exanthem, a drug eruption, gyrate erythemas, connective tissue disorder, and less likely lymphoma/leukemia cutis. An area adjacent to a cyst cannot be excluded. Additional deeper sections were obtained and reviewed. Clinical correlation is recommended. 3 6:47 PM CDT DERMATOPATHOLOGY LABORATORY Disclaimer An external and internal positive and negative controls are appropriate for the histochemical, immunohistochemical and immunofluorescence stain(s) in this case (if any), except where stated explicitly. The performance characteristics of the stain(s) cited in this report were developed and its performance characteristic determined by the Dermatopathology Laboratory at [facility], directed by Dr. Liz Castillo. These tests need not be, and therefore are not, approved by the [place] Food and Drug Administration. The tests are used for clinical purposes. Billing Codes Specimen Charges Stain Charges 10124 1 58901 15123 1 1 3 6:47 PM CDT DERMATOPATHOLOGY LABORATORY Embedded Images 3 6:47 PM CDT DERMATOPATHOLOGY LABORATORY Pathology/Cytolog y TISSUE SPECIMEN FROM SKIN / Unknown 12/30/2022 12/31/2022 12:43 PM CDT Filemon King MD LAB - PATHOLOGY/CYTO LOGY ORDERABLES DERMATOPATHOLOGY LABORATORY [facility] - Department of Dermatology [address], [address] Floor [address] [phone] * METHYLMALONIC ACID BLOOD (01/17/2020 9:56 AM CDT) Methylmalonic Acid 108 0 - 378 nmol/L [facility] ACCOUNT BILL Disclaimer [facility] ACCOUNT BILL Comment: This test was developed and its performance characteristics determined by [facility]. It has not been cleared or approved by the Food and Drug Administration. FASTING Blood BLOOD SPECIMEN / Unknown 01/17/2020 9:56 AM CDT 01/17/2020 Narrative Resulting Agency Comment Lab Testing performed at: [facility] [address] ??[facility] [phone] Aram Nicholas MD LAB - CHEMISTRY MICHELET TIJERINA [facility] ACCOUNT BILL [address] [place] [address] * SS-A/SS-B (SJOGREN'S) ANTIBODY PANEL (01/17/2020 9:56 AM CDT) Sjogren's Antibodies (SSA) <0.2 0.0 - 0.9 AI [facility] ACCOUNT BILL Sjogren's Antibodies (SSB) <0.2 0.0 - 0.9 AI [facility] ACCOUNT BILL Comment:FASTING Blood BLOOD SPECIMEN / Unknown 01/17/2020 9:56 AM CDT 01/17/2020 Narrative Resulting Agency Comment Lab Testing performed at: [facility] [place] [address] [facility] ??[facility] [phone] Aram Nicholas MD LAB - CHEMISTRY MICHELET TIJERINA Performing Organization Address [facility] Co de Phone Number [facility] ACCOUNT BILL [address] [place] [address] * VITAMIN D 25-HYDROXY (01/17/2020 9:56 AM CDT) Vitamin D, 25 Hydroxy 39.4 30.0 - 100.0 ng/mL [facility] ACCOUNT BILL Comment: Vitamin D deficiency has been defined by the [place] [employer] and an Endocrine Society practice guideline as a level of serum 25-OH vitamin D less than 20 ng/mL (1,2). The Endocrine Society went on to further define vitamin D insufficiency as a level between 21 and 29 ng/mL (2). 1. IOM ([place] [employer]). 2010. Dietary reference ?? intakes for calcium and D. [place]: The ?? National Academies Press. 2. Shar MF, [place], Iris BLANCO, et al. ?? Evaluation, treatment, and prevention of vitamin D ?? deficiency: an Endocrine Society clinical practice ?? guideline. JCEM. 2011 Jan; 96(7):1911-30. FASTING Blood BLOOD SPECIMEN / Unknown 01/17/2020 9:56 AM CDT 01/17/2020 Narrative Resulting Agency Comment Lab Testing performed at: [facility] [place] [address] ??[place] [phone] Aram Nicholas MD LAB - CHEMISTRY MICHELET TIJERINA [facility] ACCOUNT BILL [address] [place] [address] * VITAMIN B12 (01/17/2020 9:56 AM CDT) Vitamin B12 1,204 232 - 1,245 pg/mL [facility] ACCOUNT BILL Comment:FASTING Blood BLOOD SPECIMEN / Unknown 01/17/2020 9:56 AM CDT 01/17/2020 Narrative Resulting Agency Comment Lab Testing performed at: [facility] [address] ??[place] [phone] Aram Nicholas MD LAB - CHEMISTRY MICHELET TIJERINA Performing Organization Address City/[facility]/ZIP Co de Phone Number [facility] ACCOUNT BILL [address] [place] [address] * TSH (01/17/2020 9:56 AM CDT) TSH 2.050 0.450 - 4.500 uIU/mL [facility] ACCOUNT BILL Comment:FASTING Blood BLOOD SPECIMEN / Unknown 01/17/2020 9:56 AM CDT 01/17/2020 Narrative Resulting Agency Comment Lab Testing performed at: [facility] [address] ??[place] [phone] Aram Nicholas MD LAB - CHEMISTRY MICHELET TIJERINA [facility] ACCOUNT BILL [address] [place] [address] * RAD OUTSIDE IMG IMPORT (11/14/2019 10:48 AM CDT) Only the most recent of4 resultswithin the time period is included. Filemon Smith MD DIAGNOSTIC DIANA GING ORDERABLES [facility] RADIOLOGY [address] [id number] * IMAGING RADIOLOGY XRAY RESULTS ORDER (09/26/2019) Only the most recent of3 resultswithin the time period is included. Anatomical Region Laterality Modality Other Scanned Document IMAGING * XR LUMBAR SPINE FLEX/EXT 2 VIEW (07/22/2017 10:26 AM [employer]) Anatomical Region Laterality Modality Spine Radiographic Diana ging 07/22/2017 10:5 3 AM [employer] Impressions 07/22/2017 11:48 AM [employer] Grade I anterolisthesis of L4 on L5 measures approximately 7 mm in extension and 9 mm in flexion. Edited by Dilia Serrano on 07/22/2017 11:22 AM Narrative 07/22/2017 11:48 AM [employer] LUMBAR SPINE FLEXION AND EXTENSION INDICATION: Low back pain. Three prior low back surgeries. FINDINGS: Lateral views of the lumbar spine were obtained with active flexion and extension by the patient. There is a grade I anterolisthesis of L4 on L5 measuring approximately 7 mm in extension and 9 mm in flexion. This degree of change is within what could be attributed to facet arthropathy. There is no malalignment at any other level of the lumbar spine on flexion or extension. Moderate disc space narrowing is present at L5-S1 and L4-5 with mild to moderate disc space narrowing from L1-2 through L3-4. Facet arthropathy appears significant from L3-4 through L5-S1. No bony injury is seen. Procedure Note Jaci Santos MD - 07/22/2017 LUMBAR SPINE FLEXION AND EXTENSION INDICATION: Low back pain. Three prior low back surgeries. FINDINGS: Lateral views of the lumbar spine were obtained with active flexion and extension by the patient. There is a grade I anterolisthesis of L4 on L5 measuring approximately 7 mm in extension and 9 mm in flexion. This degree of change is within what could be attributed to facet arthropathy. There is no malalignment at any other level of the lumbar spine on flexion or extension. Moderate disc space narrowing is present at L5-S1 and L4-5 with mild to moderate disc space narrowing from L1-2 through L3-4. Facet arthropathy appears significant from L3-4 through L5-S1. No bony injury is seen. IMPRESSION Grade I anterolisthesis of L4 on L5 measures approximately 7 mm in extension and 9 mm in flexion. Edited by Dilia Serrano on 07/22/2017 11:22 AM Filemon Smith MD DIAGNOSTIC DIANA GING ORDERABLES * CARDIAC RHYTHM STRIP ORDER (04/03/2016 2:20 AM CDT) Narrative 04/03/2016 2:20 AM CDT Ordered by an unspecified provider. Scanned Document CARDIAC SERVICES ORD ERABLES * FL JUNG SURGERY LESS 60 MIN (03/25/2016 5:42 PM CDT) Only the most recent of2 resultswithin the time period is included. Anatomical Region Laterality Modality Radiographic Diana ging 03/25/2016 5:56 PM CDT Narrative 03/25/2016 5:56 PM CDT Fluoroscopy was provided. No radiologist was present. Fluoroscopy time was 5 seconds. 4 images were submitted. Procedure Note Jazzy Carson MD - 03/25/2016 Fluoroscopy was provided. No radiologist was present. Fluoroscopy time was 5 seconds. 4 images were submitted. Filemon Smith MD FLUOROSCOPY OR DERABLES * GROSS + MICRO EXAM (STL) (03/25/2016 1:58 PM CDT) Case Report Surgical Pathology Report ? Case: [id number] ? Authorizing Provider: ??Filemon Smith, ?? Collected: ? 03/25/2016 01:58 PM ? MD ? Ordering Location: ? [facility] ? Received: ?03/26/2016 07:51 AM ? Pathologist: ? Ina Camargo MD ? Specimen: ?Cyst, Cyst lumbar 4-5 ? 03/30/2016 2:21 PM [facility] Final Diagnosis Lumbar 4-5, cyst, excision: - Degenerative changes [facility] 03/30/2016 2:21 PM [facility] Gross Description The specimen is received in one container A in a single container of formalin labeled Rachell Palmer, cyst lumbar 4-5 is a vail piece of triangular tissue that measures 1.1 x 0.7 x 0.3 cm. The specimen is bisected and entirely submitted in cassette A1 in two pieces. [facility] 03/30/2016 2:21 PM [facility] Microscopic Description Histologic sections show fragments of fibrocartilage with degenerative changes including areas of degenerative cyst formation and benign vascular proliferation. There is no evidence of malignancy. [facility] 03/30/2016 2:21 PM [facility] Pathology/Cytolo gy CYST TISSUE / Unknown 03/25/2016 1:58 PM CDT 03/26/2016 7:51 AM CDT Filemon Smith MD LAB - PATHOLOG Y/CYTOLOGY ORDERABLES [facility] [address] [id number] * (ABNORMAL) CBC W AUTO DIFFERENTIAL (03/25/2016 12:05 PM CDT) Only the most recent of2 resultswithin the time period is included. WBC 4.4 4.4 - 10.7 x10E9/L 03/25/2016 12:53 PM CDT [facility] WBC Corrected x10E9/L 03/25/2016 12:53 PM CDT [facility] RBC 4.97 3.80 - 5.20 x10E12/L 03/25/2016 12:53 PM CDT [facility] Hemoglobin 13.2 12.0 - 15.6 gm/dL 03/25/2016 12:53 PM CDT [facility] Hematocrit 40.4 35.9 - 45.5 % 03/25/2016 12:53 PM CDT [facility] MCV 81.3 80.7 - 98.3 fl 03/25/2016 12:53 PM CDT [facility] MCH 26.6(L) 26.7 - 34.0 pg 03/25/2016 12:53 PM CDT [facility] MCHC 32.7 30.8 - 35.9 gm/dL 03/25/2016 12:53 PM CDT [facility] Platelet Count 327 153 - 416 x10E9/L 03/25/2016 12:53 PM CDT [facility] RDW-CV 13.9 12.1 - 14.9 % 03/25/2016 12:53 PM CDT [facility] MPV 9.1(L) 9.4 - 12.9 fl 03/25/2016 12:53 PM CDT [facility] Neutrophils % 58.0 44.0 - 73.0 % 03/25/2016 12:53 PM CDT [facility] Lymphocytes % 26.7 20.0 - 43.0 % 03/25/2016 12:53 PM CDT [facility] Monocytes % 10.5 5.0 - 13.0 % 03/25/2016 12:53 PM CDT [facility] Eosinophils % 4.1 0.0 - 6.0 % 03/25/2016 12:53 PM CDT [facility] Basophils % 0.5 0.0 - 2.0 % 03/25/2016 12:53 PM CDT [facility] Immature Granulocytes 0.2 0 - 1 % 03/25/2016 12:53 PM CDT [facility] Neutrophil Absolute 2.54 2.01 - 7.14 x10E9/L 03/25/2016 12:53 PM CDT [facility] Lymphocytes Absolute 1.17 1.07 - 3.94 x10E9/L 03/25/2016 12:53 PM CDT [facility] Monocytes Absolute 0.46 0.26 - 1.07 x10E9/L 03/25/2016 12:53 PM CDT [facility] Eosinophils Absolute 0.18 0 - 0.47 x10E9/L 03/25/2016 12:53 PM CDT [facility] Basophils Absolute 0.02 0 - 0.08 x10E9/L 03/25/2016 12:53 PM CDT [facility] Immature Granulocytes Absolute 0.01 0.00 - 0.06 x10E9/L 03/25/2016 12:53 PM CDT [facility] nRBC Auto 0 /100 WBC 03/25/2016 12:53 PM [facility] Blood BLOOD SPECIMEN / Unknown Venipuncture / Unknown 03/25/2016 12:05 PM CDT 03/25/2016 12:11 PM CDT Codey Galvin MD LAB - HEMATOLO GY ORDERABLES [facility] [address] [id number] * EKG 12-LEAD (03/25/2016 11:46 AM CDT) Ventricular Rate 71 BPM [facility] MUSE Atrial Rate 71 BPM [facility] MUSE P-R Interval 158 ms [facility] M[facility] QRS Duration ms 82 ms [facility] MUSE Q-T Interval ms 454 ms [facility] MUSE QTC Calculation (Bezet) 493 ms [facility] MUSE Calculated P Crandall 45 degrees [facility] MUSE Calculated R Crandall 55 degrees [facility] MUSE Calculated T Crandall 43 degrees [facility] MUSE Interpretation EKG Normal sinus rhythm Prolonged QT Abnormal ECG No previous ECGs available Confirmed by MD DAPHNIE, TORRES Craig ([id number]) on 03/27/2016 7:51:17 AM [facility] MUSE 03/25/2016 11:4 6 AM CDT 03/27/2016 7:51 AM CDT Ok Lambert DO ECG ORDERABLES [facility] MUSE * PT PTT PANEL (03/25/2016 11:22 AM CDT) PT 9.9 9.5 - 11.6 sec 03/25/2016 11:45 AM CDT [facility] INR 0.9 0.9 - 1.1 03/25/2016 11:45 AM CDT [facility] PTT 24.3 21.0 - 32.0 sec 03/25/2016 11:45 AM CDT [facility] Blood BLOOD SPECIMEN / Unknown 03/25/2016 11:22 AM CDT 03/25/2016 11:29 AM CDT Narrative [facility] - 03/25/2016 11:45 AM CDT Conventional Warfarin Anticoagulant Therapy: INR Reference Range: ??2.0-3.0 Intensive Warfarin Anticoagulant Therapy: INR Reference Range: ? 2.5-3.5 Heparin Therapeutic Range for PTT: 47.7 - 68.6 seconds. Filemon Smith MD LAB - COAGULAT ION ORDERABLES [facility] [address] [address] * US ABDOMEN LIMITED (09/28/2013) Anatomical Region Laterality Modality Abdomen Other Provider Unknown US ORDERABLES * MRI SPINE LUMBAR WITH AND WITHOUT CONTRAST (01/08/2010 2:41 PM CDT) Anatomical Region Laterality Modality Spine Magnetic Resonan ce 01/08/2010 3:19 PM CDT Impressions 01/08/2010 3:27 PM CDT Patient has had surgery at L5-S1 on the left. However the postcontrast images suggest the presence of a disc protrusion/extrusion extending inferior to the disc space and obliterating the left lateral recess. Unfortunately we have no prior imaging studies available on this patient. Annular expansion of the discs, developmentally short pedicles and facet arthropathy combine to narrow the effective diameter of the thecal sac at several additional disc space levels. See above for measurements. Also some of the neuroforamen are narrowed. Narrative 01/08/2010 3:27 PM CDT MRI LUMBAR SPINE with and without IV CONTRAST CLINICAL INDICATION: Patient complains of low back pain radiates down the left lower extremity with urinary incontinence and lower extremity numbness. Prior history of surgery at L5-S1. TECHNIQUE: Sagittal and axial noncontrast T1 and T2 weighted images of the lumbar spine were filmed. The postcontrast images were filmed following administration of 20 mL of Omniscan IV contrast. COMPARISON: None FINDINGS: The sagittal and axial images show soft tissue masslike lesion extending inferiorly from the L5-S1 disc on the left. This obliterates the left lateral recess at this level. Following IV contrast, much of this material does not show contrast enhancement. A small ring of contrast enhancement in the visualized at the disc space level. Patient is thought to have a partial laminectomy at the left at L5-S1. Unfortunately, we have prior images available at the time the patient's presentation to the emergency room. At L4-L5, the disc is diffusely expanded. Also facet arthropathy is noted bilaterally. This accident concert 2 narrowing the AP diameter of the thecal sac to 10.4 mm in the midline. The neural foramen mildly narrowed bilaterally as well. At L3-L4, facet arthropathy is noted bilaterally. The posterior limits are thickened and the pedicles are developmentally shortened. AP diameter of the thecal sac is estimated at 9.6 mm in the midline. The care of the L2-L3, facet arthropathy is present bilaterally. This causes an indentation on the right posterior lateral aspect of the thecal sac. AP diameter the thecal sac is 12.3 mm in the midline. This report was transcribed with a computerized speech recognition system. ??In an effort to expedite patient care, it has not been adjusted for typographical, grammatical or syntax problems by a trained adjunct faculty for medical terminology. For questions about the report, please contact the Radiology Department. Procedure Note Brian Kimbrough MD - 01/08/2010 MRI LUMBAR SPINE with and without IV CONTRAST CLINICAL INDICATION: Patient complains of low back pain radiates down the left lower extremity with urinary incontinence and lower extremity numbness. Prior history of surgery at L5-S1. TECHNIQUE: Sagittal and axial noncontrast T1 and T2 weighted images of the lumbar spine were filmed. The postcontrast images were filmed following administration of 20 mL of Omniscan IV contrast. COMPARISON: None FINDINGS: The sagittal and axial images show soft tissue masslike lesion extending inferiorly from the L5-S1 disc on the left. This obliterates the left lateral recess at this level. Following IV contrast, much of this material does not show contrast enhancement. A small ring of contrast enhancement in the visualized at the disc space level. Patient is thought to have a partial laminectomy at the left at L5-S1. Unfortunately, we have prior images available at the time the patient's presentation to the emergency room. At L4-L5, the disc is diffusely expanded. Also facet arthropathy is noted bilaterally. This accident concert 2 narrowing the AP diameter of the thecal sac to 10.4 mm in the midline. The neural foramen mildly narrowed bilaterally as well. At L3-L4, facet arthropathy is noted bilaterally. The posterior limits are thickened and the pedicles are developmentally shortened. AP diameter of the thecal sac is estimated at 9.6 mm in the midline. The care of the L2-L3, facet arthropathy is present bilaterally. This causes an indentation on the right posterior lateral aspect of the thecal sac. AP diameter the thecal sac is 12.3 mm in the midline. This report was transcribed with a computerized speech recognition system. In an effort to expedite patient care, it has not been adjusted for typographical, grammatical or syntax problems by a trained adjunct faculty for medical terminology. For questions about the report, please contact the Radiology Department. IMPRESSION Patient has had surgery at L5-S1 on the left. However the postcontrast images suggest the presence of a disc protrusion/extrusion extending inferior to the disc space and obliterating the left lateral recess. Unfortunately we have no prior imaging studies available on this patient. Annular expansion of the discs, developmentally short pedicles and facet arthropathy combine to narrow the effective diameter of the thecal sac at several additional disc space levels. See above for measurements. Also some of the neuroforamen are narrowed. Macie Murphy MD MR ORDERABLES * (ABNORMAL) COMPREHENSIVE METABOLIC PANEL (01/08/2010 12:15 PM CDT) Glucose 84. 65 - 105 mg/dl [facility] BUN 7. 7 - 17 mg/dl [facility] Creatinine .63 0.52 - 1.04 mg/dl [facility] Sodium 139. 137 - 145 mmol/L [facility] Potassium 3.5(L) 3.6 - 5.0 mmol/L [facility] Chloride 105. 98 - 107 mmol/L [facility] CO2 29. 22 - 30 mmol/L [facility] Calcium 8.3(L) 8.4 - 10.2 mg/dl [facility] Bilirubin Total .5 0.2 - 1.3 mg/dl [facility] Alkaline Phosphatase 99. 38 - 126 U/L [facility] AST 26. 14 - 36 U/L [facility] ALT 13. 9 - 52 U/L [facility] Protein Total 7.0 6.3 - 8.2 gm/dl [facility] Albumin 3.8 3.5 - 5.0 gm/dl [facility] eGFR By MDRD >60 >60 [facility] BLOOD SPECIMEN / Unknown 01/08/2010 12:15 PM CDT 01/08/2010 12:17 PM CDT Macie Murphy MD LAB - CHEMISTRY [facility] Organization Address City/State/ZIP Co de Phone Number [facility] [address] [address] * URINALYSIS ROUTINE W/REFLEX TO CULTURE (01/08/2010 11:00 AM CDT) Color UA Yellow [facility] Character UA Clear [facility] Glucose UA Negative Negative [facility] Bilirubin UA Negative Negative [facility] Ketone UA Negative Negative mg/dl [facility] Specific Husser UA 1.020 1.003 - 1.030 [facility] pH UA 6.5 4.5 - 8.0 pH Units [facility] Protein UA Negative Negative [facility] Urobilinogen UA 0.2 <1.0 Marshall Units [facility] Nitrite UA Negative Negative mg/dl [facility] Blood UA Negative Negative mg/dl [facility] Leukocyte UA Negative Negative [facility] Microscopy Examination Urine Urine Micro Not Indicated [facility] Culture Urine No culture to be done per protocol [facility] URINE SPECIMEN COLLECTION, CATHETERIZED / Unknown 01/08/2010 11:00 AM CDT 01/08/2010 5:00 PM CDT Macie Murphy MD LAB - URINALYSIS ORD ERABLES [facility] [address] [place] [address] Care Teams Chemical Plant Worker Relationship Specialty Start Date End Date Sole Carson MD [address] [place] [address] PCP - General 01/08/10
--- OUTSIDE RECORDS SUMMARY | 2024-08-10 20:54 | XMS_ITS | Referral Summary ---
Author Organization [facility] Address [address] [place] [address] Care Team Providers Care Councilperson Name Role Phone Sole Carson MD Primary Care Provider [phone] Source Comments [facility],non-owned Affiliates and Associated Physician Practices is amultiple site organization consisting of ambulatory clinics and hospital sitesin [place], [place], [place] and [place]. This disclosure is being madepursuant to the Care Everywhere program and may not contain all information available regarding this patient. Last updated 18.[facility] Allergies Active Allergy Reactions Criticality Noted Date Comments Povidone Iodine Urticaria 03/19/2016 Chlorhexidine Urticaria 03/19/2016 Iodine Urticaria 01/08/2010 Latex 03/25/2016 Sulfa Drugs Anaphylaxis 01/08/2010 Medications * Be aware that medications may not be up to date on this document. Alwaysverify current medications with the patient. Medication Sig Dispensed Refills Start Date End Date Status hydroxychloroquine (PLAQUENIL) 200 MG tablet Take 1 Tab by mouth 2 times daily. Active rabeprazole EC (ACIPHEX) 20 MG tablet Take 20 mg by mouth daily. Active tramadol (ULTRAM) 50 MG tablet Take 100 mg by mouth every 6 hours as needed for Pain Active amLODIPine (NORVASC) 5 MG tablet Take 10 mg by mouth once daily Active calcium carbonate (TUMS) 750 MG chew tablet Take 2 Tabs by mouth at bedtime Active Multiple Vitamins-Minerals (MULTIVITAMIN GUMMIES ADULT) CHEW Take 1 Tab by mouth once daily Active Vitamin D3 (CHOLECALCIFEROL) 2000 UNITS capsule Take 2,000 Units by mouth once daily Active zaleplon (SONATA) 10 MG capsule Take 20 mg by mouth at bedtime Active promethazine (PHENERGAN) 25 MG tablet 02/25/2016 Active diclofenac sodium (VOLTAREN) 1 % gel 02/25/2016 Active acetaminophen (TYLENOL) 500 MG tablet Take 1,000 mg by mouth 2 times daily as needed for Fever or Pain Maximum allowable Acetaminophen amount = 4 Grams (4000 mg) / 24 hours. Active ondansetron (ZOFRAN) 4 MG tablet Take 1 Tab by mouth every 6 hours as needed for Nausea/Vomiting 30 Tab 0 03/26/2016 Active apixaban (ELIQUIS) 5 MG tablet Eliquis 5 mg tablet Take 1 tablet twice a day by oral route. Active BENLYSTA 200 MG/ML SOAJ Weekly injection 11/29/2019 Active Active Problems Problem Noted Date Diagnosed Date [...] Mass Index 39.12 03/25/2016 7:30 PM CDT Functional Status Functional Status Response Date of Assess ment Is person deaf or have serious hearing difficult y? No 03/26/2016 Is person blind or have serious difficulty seein g? No 03/26/2016 Does person have serious dif ficulty walking/climbing stairs? No 03/26/2016 Does person have difficulty dressing/bathing? No 03/26/2016 Does person have difficulty doing errands alone? No 03/26/2016 Cognitive Status Response Date of Assessm ent Does person have difficulty concentrating/remembering/making decisions? No 03/26/2016 Plan of Treatment Not on file Advance Directives * Full Code (Latest Code Status on File) Date Activated Date Inactivated Comments 03/25/2016 7:26 PM 03/26/2016 5:25 PM Care Teams Councilperson Relationship Specialty Start Date End Date Sole Carson MD [address] [facility] [place] [address] PCP - General 01/08/10
--- OUTSIDE RECORDS SUMMARY | 2024-08-10 20:54 | XMS_ITS | Encounter Summary ---
Author Organization [facility] Address [address] [place] [address] Care Team Providers Care Foxing Closer Name Role Phone Miriam Durant APN Primary Care Provider Encounter Details Date Type Department Care Team (Late st Contact Info) Description 06/28/2002 Outpatient Historical [facility], [address] Social History Tobacco Use Types Packs/Day Years Used Date Smoking Tobacco: Never Assessed Comments Unknown Sex and Gender Information Value Date Recorded Sex Assigned at Not on file Legal Sex Female 4:24 AM EXHIBIT SPECIALIST Gender Identity Not on file Sexual Orientation Not on file documented as of this encounter Plan of Treatment Not on file documented as of this encounter Visit Diagnoses Not on filedocumented in this encounter Care Teams Foxing Closer Relationship Specialty Start Date End Date Miriam Durant APN [address] [place] [address] PCP - General Family Practice 09/24/15 documented as of this encounter
--- OUTSIDE RECORDS SUMMARY | 2024-08-10 20:54 | XMS_ITS | Continuity of Care Document ---
Author Organization [facility] Address [address] [facility] [address] [place] [address] Phone Care Team Providers Care Stationary Fireman Name Role Phone Renato Brice Unavailable Unavailable Procedures Procedure Date Office/outpatient Visit, [facility] Advance Directives Directive Yes / No Effective Date File Name No Information Encounters Encounter Description Practice Location Reason(s) For Visit Diagnoses Date Provider Providers Copied on Encounter Office/outpat ient Visit, [facility], [address], [place], [place], [id number], [place] tel:[phone] [address] [facility] No Information [address]. [address] , [address], [place], [address], [place]. tel:[phone] Family History Family Member Type Diagnosis Age At Onset No Information Payers Payer name Insurance type Covered republican ID Authoriza tion(s) No Information Social History Type Description Quantity Date Captured Comments Sex Female Smoking Status No Information Chief Complaint And Reason For Visit No Information Reason For Referral Reason For Referral No Information History Of Present Illness Encounter Date Complaint History Of Prese nt Illness No Information Functional Status Date Functional Assessmen t No Information Instructions Date Instruction Additional Infor mation No Information Assessments Type Assessment Date No Information Patient Care Teams Name Effective Dates (start - stop) Status Members No Information
--- OUTSIDE RECORDS SUMMARY | 2024-08-10 20:54 | XMS_ITS | Clinical Summary ---
Author Organization [facility] Address [address] [place] [address] Care Team Providers Care Chemical Compounder Helper Name Role Phone Sole Carson MD Primary Care Provider [phone] Source Comments [facility],non-owned Affiliates and Associated Physician Practices is amultiple site organization consisting of ambulatory clinics and hospital sitesin [place], [place], [place] and [place]. This disclosure is being madepursuant to the Care Everywhere program and may not contain all information available regarding this patient. Last updated 18.[facility] Allergies Active Allergy Reactions Criticality Noted [...] Date Diagnosed Date Left lumbar radiculopathy 01/08/2010 Family History Medical History Relation Name Comments Cancer - Lung Father Relation Name Status Comments Father Mother Social History Tobacco Use Types Packs/Day Years [...] Mass Index 39.12 03/25/2016 7:30 PM CDT Plan of Treatment Health Maintenance Due Date Last Done Comments BONE DENSITY TESTING 1959 COLOGUARD (AGES 45-75) - COL ON CA SCREENING 1959 COLON MONITORING 1959 COLONOSCOPY - COLON CA SCREENING 1959 CT COLONOGRAPHY - COLON CA SCREENING 1959 Colorectal Cancer Screening 1959 FIT - COLON CA SCREENING 1959 FLEX SIG - COLON CA SCREENING 1959 LIPID TESTING 1959 MAMMOGRAM 1959 MEDICARE AWV ? 12 MONTHS 1959 PAP SMEAR 1959 HIV SCREENING 1974 HEPATITIS C SCREENING 05/18/1977 DTAP/TDAP/TD VACCINES (1 - Tdap) 1978 PNEUMOCOCCAL VACCINE 50+ (1 of 1 - PCV) 2009 ZOSTER VACCINE (1 of 2) 2009 COVID-19 VACCINE (1 - 2023-2 5 season) 2024 INFLUENZA VACCINE (#1) 2024 06/19/2016 DEPRESSION SCREENING 07/19/2024 Respiratory Syncytial Virus (RSV) Vaccine Pt: or over 60 yrs (1 - 1-dose 75+ series) 2034 HEPATITIS B VACCINE Aged Out No longe r eligible based on patient's age to complete this topic HIB VACCINE Aged Out No longer eligi ble based on patient's age to complete this topic HPV VACCINE Aged Out No longer eligi ble based on patient's age to complete this topic MENINGOCOCCAL (Group B) VACCINE Aged Out No longer eligible based on patient's age to complete this topic MENINGOCOCCAL VACCINE Aged Out No estella sathish eligible based on patient's age to complete this topic Advance Directives * Full Code (Latest Code Status on File) Date Activated Date Inactivated Comments 03/25/2016 7:26 PM 03/26/2016 5:25 PM Care Teams Chemical Compounder Helper Relationship Specialty Start Date End Date Sole Carson MD [address] [place] [address] PCP - General 01/08/10
--- OUTSIDE RECORDS SUMMARY | 2024-08-10 20:54 | XMS_ITS | Encounter Summary ---
Author Organization [facility] Address [address] [facility] [place] [address] Care Team Providers Care Call Center Receptionist Name Role Phone Sole Carson MD Primary Care Provider [phone] Encounter Details Date Type Department Care Team (Late st Contact Info) Description 12/01/2014 Therapy Visit [facility] [address] [place] [address] Miriam Durant, STATOR TESTER-SILVER LAP MACHINE TENDER [address] [place] [address] Social History Tobacco Use Types Packs/Day Years Used Date Smoking Tobacco: Never Alcohol Use Standard Drinks/Week Comments Yes 0 [...] on filedocumented in this encounter Care Teams Call Center Receptionist Relationship Specialty Start Date End Date Sole Carson MD [address] [place] [address] PCP - General 01/08/10 documented as of this encounter
--- OUTSIDE RECORDS SUMMARY | 2024-08-10 20:54 | XMS_ITS | Clinical Summary ---
Author Organization [facility] Address [address] [address] Phone Care Team Providers Care Pesticide Use Medical Coordinator Name Role Phone Miriam Durant APN Primary Care Provider Allergies Active Allergy Reactions Criticality Noted Date Comments Iodine Hives High 09/24/2015 Latex Rash Low 09/24/2015 Povidone-Iodine Hives High 09/24/2015 Sulfamethoxazole-Trimethoprim Anaphylaxis High 09/23 Medications zaleplon (SONATA) 10 mg capsule 08/23/2015 Active traMADol (ULTRAM) 50 mg tablet 08/29/2015 Active RABEprazole (ACIPHEX) 20 mg Tablet, Delayed Release (E.C.) 09/21/2015 Acti ve promethazine (PHENERGAN) 12.5 mg Tablet 06/17/2015 Active promethazine (PHENERGAN) 25 mg tablet 07/09/2015 Active hydroxychloroqui ne (PLAQUENIL) 200 mg tablet 08/28/2015 Activ e ELIQUIS 5 mg tablet 09/21/2015 Active amLODIPine (NORVASC) 5 mg tablet 06/28/2015 Active metaxalone (SKELAXIN) 800 mg tablet Take 800 mg by mouth 3 times daily. Active Active Problems Patient Care Coordination No te Formatting of this note migh t be different from the original. Primary Care: Miriam Durant APN Referring Provider: Miriam Durant APN [address] [place] [address] Other: Problem Noted Date Diagnosed Date Lupus HTN (hypertension) A-fib TIA (transient ischemic attack) GERD (gastroesophageal reflux disease) Family History Medical History Relation Name Comments Cancer Father mesothielioma Heart Disease Mother Breast Cancer Neg Hx Ovarian Cancer Neg Hx Relation Name Status Comments Father Mother Social History Tobacco Use Types Packs/Day Years Used Date Smoking Tobacco: Never Smokeless Tobacco: Never Alcohol Use Standard Drinks/Week Comments Yes 0 (1 standard drink = 0.6 oz pur e alcohol) rare Comments No Sex and Gender Information Value Date Recorded Sex Assigned at Not on file Legal Sex Female 4:24 AM TESTING SPECIALIST Gender Identity Not on file Sexual Orientation Not on file Last Filed Vital Signs Vital Sign Reading Time Taken Comments Blood Pressure 127/80 09/24/2015 1:46 PM TESTING SPECIALIST Pulse 89 09/24/2015 1:46 PM TESTING SPECIALIST Temperature - - Respiratory Rate - - Oxygen Saturation - - Inhaled Oxygen Concentration - - Weight - - Height 162.6 cm (5' 4 ) 09/24/2015 1:46 PM TESTING SPECIALIST Body Mass Index - - Plan of Treatment Health Maintenance Due Date Last Done Comments DTAP/TDAP/TD VACCINES (1 - Tdap) 1978 PNEUMOCOCCAL VACCINE 65+ YEA RS (1 of 2 - PCV) 1978 ZOSTER VACCINE (1 of 2) 1978 COLORECTAL SCREENING 2004 Colorectal Cancer Screening 2004 FIT-DNA Q 3 years 2004 FIT/FOBT Q 1 year 2004 Flex Sig/CT Colonography Q 5 years 2004 BREAST CANCER SCREENING 08/27/2016 08/27/19 16, 10/11/2014, 02/08/2014, Additional history exists RSV VACCINE (60+ or ) (1 - Risk 60-74 years 1-dose series) 2019 INFLUENZA VACCINE (#1) 2024 OSTEOPOROSIS SCREENING 2024 Procedures Procedure Name Priority Date/Time Associated Diagnosis Comments MAMMO DIAGNOSTIC BILATERAL W OR WO CAD Routine 08/27/2015 from Last 3 Months or Most Recently Relevant to Health Maintenance Results * MAMMO DIGITAL DIAG BILAT (08/27/2015) Anatomical Region Laterality Modality Breast Bilateral Other us Jacquie Negron MD MAMMO ORDERABLES Edited Result - Final from Last 3 Months or Most Recently Relevant to Health Maintenance Insurance [facility] [id number] Care Teams Pesticide Use Medical Coordinator Relationship Specialty Start Date End Date Miriam Durant APN [address] [place] [address] PCP - General Family Practice 09/24/15
--- OUTSIDE RECORDS SUMMARY | 2024-08-10 20:54 | XMS_ITS | Encounter Summary ---
Author Organization [facility] Address [address] [facility] [place] [address] Care Team Providers Care Registered Nurse First Assistant Name Role Phone Sole Carson MD Primary Care Provider [phone] Encounter Details Date Type Department Care Team (Late st Contact Info) Description 12/31/2022 Lab Requisition [facility] [address] [place] [id number] Filemon King MD [address] [place] [address] Social History Tobacco Use Types Packs/Day Years Used Date Smoking Tobacco: Never Smokeless Tobacco: Never Alcohol Use Standard Drinks/Week Comments Yes 0 (1 standard drink = 0.6 oz pur e alcohol) occassional Sex and Gender Information Value Date Recorded Sex Assigned at Not on file Gender Identity Not on file Sexual Orientation Not on file documented as of this encounter Functional Status Functional Status Response Date of [...] person have difficulty concentrating/remembering/making decisions? No 03/26/2016 documented as of this encounter Plan of Treatment Not on file documented as of this encounter Procedures Procedure Name Priority Date/Time Associated Diagnosis Comments DERMATOPATHOLOGY Routine 12/30/2022 12:0 0 AM CDT documented in this encounter Results * DERMATOPATHOLOGY (12/30/2022 12:00 AM CDT) Case Report Dermatopathology Report ? Case: [id number] ? Authorizing Provider: ??Filemon King MD ?Collected: ? 12/30/2022 12:00 AM ? Ordering Location: ? [facility] DermPath Lab ? Received: ?12/31/2022 12:43 PM [...] characteristic determined by the Dermatopathology Laboratory at [facility], directed by Dr. Liz Castillo. These tests need not be, and therefore are not, approved by the [place] Food and Drug Administration. The tests are used for clinical purposes. Billing Codes Specimen Charges Stain Charges 76059 1 [id number] 83304 1 1 3 6:47 PM CDT DERMATOPATHOLOGY LABORATORY Embedded Images 3 6:47 PM CDT DERMATOPATHOLOGY LABORATORY Pathology/Cytolog y TISSUE SPECIMEN FROM SKIN / Unknown 12/30/2022 12/31/2022 12:43 PM CDT Filemon King MD LAB - PATHOLOGY/CYTO LOGY ORDERABLES DERMATOPATHOLOGY LABORATORY [facility] - Department of Dermatology [address], [address] [phone] documented in this encounter Visit Diagnoses Not on filedocumented in this encounter Care Teams Registered Nurse First Assistant Relationship Specialty Start Date End Date Sole Carson MD [address] [place] [address] PCP - General 01/08/10 documented as of this encounter
--- OUTSIDE RECORDS SUMMARY | 2024-08-10 20:54 | XMS_ITS | Clinical Summary ---
Author Organization [facility] Address [address] [place] [address]. [place] [address] [place] [address] Care Team Providers Care Audit Analyst Name Role Phone Unavailable Primary Care Provider Unavailabl e Social History Tobacco Use Types Packs/Day Years Used Date Smoking Tobacco: Never Assessed Comments Unknown Sex and Gender Information Value Date Recorded Sex Assigned at Not on file Legal Sex Female 4:52 PM CDT Gender Identity Not on file Sexual Orientation Not on file Plan of Treatment Health Maintenance Due Date Last Done Comments Cervical Cancer Screening Pa p Smear (Age 30 to 64) Every 3 Years 1959 Colorectal Cancer Screening Colonoscopy (10 Years) 1959 Annual Physical 1962 Hepatitis C 1977 DTaP, Tdap and Td Vaccines ( 1 - Tdap) 1978 Cervical Cancer Screening Pa p with HPV Testing (Age 30 to 64) Every 5 Years 1989 Cervical Cancer Screening with HPV 1989 Mammogram Screening 1999 Zoster Vaccines (1 of 2) 2009 COVID-19 Vaccine ( - 2023-2 5 season) 2024 Influenza Adult (#1) 2024 Dexa Scan (General) 2024 Pneumococcal Vaccine: 65+ Ye ars (1 of 1 - PCV) 2024 RSV Immunization or 60+ Years (1 - 1-dose 75+ series) 2034 Meningococcal Vaccine Aged Out No estella sathish eligible based on patient's age to complete this topic Pneumococcal Vaccine: Pediat rics (0 to 5 Years) and At-Risk Patients (6 to 64 Years) Aged Out No longer eligible b ased on patient's age to complete this topic RSV Immunizations Under 20 Months Aged Out No longer eligible based on patient's age to complete this topic
== END 2024-08-09 15:59 | disposition home or self-care (01) ==
PROVIDERS: PCP Family Medicine; Visit Provider Orthopaedic Surgery
PROC: (CPT 27814; principal; 2024-08-09 10:30)
DX: S82.842A Displaced bimalleolar fracture of left lower leg, initial encounter for closed fracture (principal); E78.2 Mixed hyperlipidemia; G47.00 Insomnia, unspecified; I49.9 Cardiac arrhythmia, unspecified; M48.02 Spinal stenosis, cervical region; M51.369 Other intervertebral disc degeneration, lumbar region without mention of lumbar back pain or lower extremity pain; L93.0 Discoid lupus erythematosus; I11.9 Hypertensive heart disease without heart failure; R41.3 Other amnesia; G89.29 Other chronic pain; M25.552 Pain in left hip; M19.041 Primary osteoarthritis, right hand; M54.42 Lumbago with sciatica, left side; M54.41 Lumbago with sciatica, right side; L25.9 Unspecified contact dermatitis, unspecified cause; M72.2 Plantar fascial fibromatosis; W00.0XXA Fall on same level due to ice and snow, initial encounter; E66.9 Obesity, unspecified; Z68.33 Body mass index [BMI] 33.0-33.9, adult; Z98.890 Other specified postprocedural states; Z79.52 Long term (current) use of systemic steroids; Z79.01 Long term (current) use of anticoagulants; Z79.891 Long term (current) use of opiate analgesic; Z87.19 Personal history of other diseases of the digestive system; Z82.49 Family history of ischemic heart disease and other diseases of the circulatory system
CPT/HCPCS: 27814; 93005; A9270; C1713; J1100; J1171; J1200; J1885; J2003; J2250; J2405; J2704; J3010; J7120; L2116

== ENCOUNTER 2024-10-11 08:11 | Outpatient (CLI) | payer MEDICARE, SELFPAY ==
--- NOTE | ~2024-10-11 | MR_ITS ---
EXAMINATION: MR cervical spine wo con DATE: 10/11/2024 08:43 INDICATION: Neck pain. TECHNIQUE: Magnetic resonance imaging (MRI) of the cervical spine was performed without intravenous c ontrast. COMPARISON: None FINDINGS: Bone alignment is normal. Vertebral body heights are normal. Intervertebral disc heights ar e normal. The spinal cord signal intensity is normal. The following disc levels are specifically disc ussed: C2-C3: The disc does not extend beyond the endplate margin. There is mild right uncovertebral joint o steoarthritis. There is severe right and mild left facet joint osteoarthritis. There is mild right ne ural foraminal stenosis. There is no central canal stenosis. C3-C4: The disc does not extend beyond the endplate margin. There is mild right and moderate left unc overtebral joint osteoarthritis. There is moderate bilateral facet joint osteoarthritis. There is mil d bilateral neural foraminal stenosis. There is no central canal stenosis. C4-C5: The disc is bulging. There is moderate right and mild left uncovertebral joint osteoarthritis. There is moderate right and severe left facet joint osteoarthritis. There is moderate right and mild left neural foraminal stenosis. There is mild central canal stenosis. C5-C6: The disc is bulging. There is mild bilateral uncovertebral joint osteoarthritis. There is papa re bilateral facet joint osteoarthritis. There is mild bilateral neural foraminal stenosis. There is mild central canal stenosis. C6-C7: There is a central protrusion. There is mild bilateral uncovertebral joint osteoarthritis. The re is severe bilateral facet joint osteoarthritis. There is mild bilateral neural foraminal stenosis. There is mild central canal stenosis. C7-T1: There is a central protrusion. There is no uncovertebral joint osteoarthritis. There is severe bilateral facet joint osteoarthritis. There is mild bilateral neural foraminal stenosis. There is no central canal stenosis. IMPRESSION: 1. Moderate right neural foraminal stenosis at C4-C5. Otherwise mild cervical spondylosis. Reviewed, dictated and finalized at location A. IMPRESSION: 1. Moderate right neural foraminal stenosis at C4-C5. Otherwise mild cervical s pondylosis.
== END 2024-10-11 08:12 | disposition home or self-care (01) ==
LOC: GOSHIMG 08:12
PROVIDERS: Visit Provider Family Medicine
DX: M48.02 Spinal stenosis, cervical region (principal); M47.812 Spondylosis without myelopathy or radiculopathy, cervical region; G89.29 Other chronic pain
CPT/HCPCS: 72141

== ENCOUNTER 2024-11-16 14:38 | Outpatient (CLI) | payer MEDICARE, SELFPAY ==
--- NOTE | ~2024-11-16 | MR_ITS ---
MRI of the right shoulder Technique: Axial proton-density fat-sat images, coronal proton density fat-sat and T2 fat-sat images, and sagittal T1-weighted and T2 fat-sat images were acquired. Clinical History: Pain Findings: There is mild to moderate AC joint degenerative change. There is bony productive change at the distal clavicle with small subacromial spur. Coracoclavicular, coracoacromial, and coracohumeral ligaments are intact. There is moderate supraspinatus and infraspinatus tendinosis, without definite partial or full-thickn ess tear. Subscapularis tendon is intact with mild to moderate tendinosis. Tendon of the long head of the biceps is intact. There is superior labral tear, extending to the posterior superior portion. Inferior glenohumeral ligament is intact. No degenerative change or effusion of the glenohumeral join t. Small amount of fluid present in the subacromial/subdeltoid bursa. No muscle atrophy or edema. Impression: Superior labral tear extending to the posterior superior portion. Rotator cuff tendinosis without definite partial or full-thickness tear. Mild to moderate AC joint degenerative change. Mild subacromial/subdeltoid bursitis. Reviewed, dictated and finalized at location . Impression: Superior labral tear extending to the posterior superior portion. Rotator cuff tendinosis without definite partial or full-thickness tear. Mild to moderate AC joint degenerative change. Mild subacromial/subdeltoid bursitis.
== END 2024-11-16 14:39 | disposition home or self-care (01) ==
LOC: GOSHIMG 14:38
PROVIDERS: PCP Family Medicine; Visit Provider Orthopaedic Surgery
DX: S43.431A Superior glenoid labrum lesion of right shoulder, initial encounter (principal); M75.111 Incomplete rotator cuff tear or rupture of right shoulder, not specified as traumatic; M19.011 Primary osteoarthritis, right shoulder; M75.51 Bursitis of right shoulder
CPT/HCPCS: 73221

== ENCOUNTER 2025-03-09 13:57 | Outpatient (CLI) | payer MEDICARE, SELFPAY ==
--- NOTE | ~2025-03-09 | MM_ITS ---
EXAMINATION: MM screening catrina BI w [facility] HISTORY: Screening TECHNIQUE: Craniocaudal and mediolateral oblique 3-D tomosynthesis images were obtained and synthetic 2-D images were generated. CAD analysis was submitted and interpreted. COMPARISON: 11/23/2012 BREAST PARENCHYMAL COMPOSITION: Dense: The breasts are heterogeneously dense, which may obscure small masses FINDINGS: There is a new cluster of calcifications in the upper outer quadrant of the right breast, middle third. The left breast is stable without evidence for malignancy. IMPRESSION: 1. New cluster of right breast calcifications. 2. Magnification views are recommended. BI-RADS Category 0: Incomplete: Needs additional imaging evaluation. Reviewed, dictated and finalized at location O.
== END 2025-03-09 13:58 | disposition home or self-care (01) ==
LOC: MICIMG 13:58
PROVIDERS: PCP Family Medicine; Visit Provider Family Medicine
DX: Z12.31 Encounter for screening mammogram for malignant neoplasm of breast (principal); R92.8 Other abnormal and inconclusive findings on diagnostic imaging of breast
CPT/HCPCS: 77063; 77067